=== PATIENT | female | born 1995 | race Caucasian/White ===

== ENCOUNTER 2019-06-28 19:46 | Emergency (ER) | payer BC ==
[~2019-06-28] VITALS: Ht 152.4 cm; Wt 43.5 kg
== END 2019-06-28 23:07 | disposition home or self-care (01) ==
LOC: ER 19:46
DX: S00.33XA Contusion of nose, initial encounter (principal); W54.1XXA Struck by dog, initial encounter; Y93.89 Activity, other specified; Y92.89 Other specified places as the place of occurrence of the external cause; Y99.8 Other external cause status

== ENCOUNTER 2023-05-03 14:43 | Outpatient (CLI) | payer OTHER | END 2023-05-03 17:06 | disposition home or self-care (01) | LOC: PRENATAL 14:43 | PROVIDERS: ATTEND Obstetrics & Gynecology Maternal & Fetal Medicine | DX: O36.80X0 Pregnancy with inconclusive fetal viability, not applicable or unspecified (principal); Z36.9 Encounter for antenatal screening, unspecified; Z36.82 Encounter for antenatal screening for nuchal translucency; Z3A.12 12 weeks gestation of pregnancy ==

== ENCOUNTER 2023-06-30 08:16 | Outpatient (CLI) | payer OTHER | END 2023-06-30 08:18 | disposition home or self-care (01) | LOC: PRENATAL 08:16 | PROVIDERS: ATTEND Obstetrics & Gynecology Maternal & Fetal Medicine | DX: O35.3XX0 Maternal care for (suspected) damage to fetus from viral disease in mother, not applicable or unspecified (principal); O44.00 Complete placenta previa NOS or without hemorrhage, unspecified trimester; Z3A.20 20 weeks gestation of pregnancy ==

== ENCOUNTER 2023-09-22 09:10 | Outpatient (CLI) | payer OTHER | END 2023-09-22 09:11 | disposition home or self-care (01) | LOC: PRENATAL 09:10 | PROVIDERS: ATTEND Obstetrics & Gynecology Maternal & Fetal Medicine | DX: O26.849 Uterine size-date discrepancy, unspecified trimester (principal); O36.8199 Decreased fetal movements, unspecified trimester, other fetus; Z3A.32 32 weeks gestation of pregnancy ==

== ENCOUNTER 2023-10-26 09:38 | Outpatient (CLI) | payer OTHER | END 2023-10-26 09:43 | disposition home or self-care (01) | LOC: PRENATAL 09:38 | PROVIDERS: ATTEND Obstetrics & Gynecology Maternal & Fetal Medicine | DX: O26.849 Uterine size-date discrepancy, unspecified trimester (principal); O36.8199 Decreased fetal movements, unspecified trimester, other fetus; Z3A.37 37 weeks gestation of pregnancy ==

== ENCOUNTER 2023-10-29 14:44 | Outpatient (CLI) | payer OTHER ==
[~2023-10-29] VITALS: Ht 154.9 cm; Wt 58.5 kg
[~2023-10-29 14:44] MED LIST: IRON18 MG PO; PRENATAL TABLE1 EAC1 PO
[2023-10-29] MEDS ORDERED: RINGERS SOLUTION,LACTATED 1,000 ML IV SCH (15:00)
[2023-10-29 15:42] LABS: PH,URINE 6.5 (5.0-8.0); URINE APPEARANCE Clear; URINE BILIRRUBIN Negative (NEGATIVE); URINE BLOOD Small; URINE COLOR Yellow; URINE GLUCOSE Negative (NEGATIVE); URINE LEUKOCYTE Trace; URINE NITRATE Negative; URINE PROTEIN Negative (NEGATIVE); URINE UROBILINOGEN 0.2 E.U./dl
[2023-10-29 15:43] LABS: URINE BACTERIA 481.2 uL (0.0-1933); URINE WBC 30.7 uL (0.0-23.2)
[2023-10-29 15:45] LABS: HEMATOCRIT 36.3 % (36.0-45.00); HEMOGLOBIN 12.6 g/dL (12.0-15.00); MEAN CELL VOLUME 89.7 fL (80.00-100.00); MEAN CORPUSCULAR HEMOGLOBIN 31.1 pg (27.00-32.0); MEAN CORPUSCULAR HGB CONC 34.7 g/dl (32.0-36.0); RED BLOOD COUNT 4.04 M/uL (4.00-6.00); RED CELL DISTRIBUTION WIDTH 13.9 % (11.5-14.5)
[2023-10-29 15:46] LABS: URINE RBC 0.7 uL (0.0-20.8)
[2023-10-29 15:53] LABS: PLATELET COUNT 120 K/uL (150-450)
[2023-10-29 16:08] LABS: ALBUMIN 2.7 gm/dL (3.4-5.0); BILIRUBIN TOTAL 0.29 mg/dL (0.3-1.2); CALCIUM 9.2 mg/dL (8.5-10.1); CREATININE SERUM 0.59 mg/dL (0.55-1.02); GFR 120.5; GLOBULINA 3.2 G/DL (2.4-3.5); POTASSIUM 4.2 mEq/L (3.5-5.1); TOTAL PROTEIN 5.9 gm/dL (6.4-8.2)
[2023-10-29] MEDS ORDERED: ONDANSETRON HCL 2 MG/ML VIAL IV ONE (19:15)
[2023-10-29] MEDS ORDERED: hydrOXYzine PAMOATE 50 MG CAPSULE PO PRN (21:30)
== END 2023-10-30 14:01 | disposition home or self-care (01) ==
LOC: OBS/DEL 14:44
PROVIDERS: ATTEND Obstetrics & Gynecology
DX: O63.9 Long labor, unspecified (principal); Z3A.37 37 weeks gestation of pregnancy

== ENCOUNTER 2024-04-13 07:02 | Outpatient (CLI) | payer OTHER | END 2024-04-13 07:16 | disposition home or self-care (01) | LOC: MRI 07:02 | PROVIDERS: ATTEND Obstetrics & Gynecology | DX: R19.00 Intra-abdominal and pelvic swelling, mass and lump, unspecified site (principal); R10.2 Pelvic and perineal pain; R10.9 Unspecified abdominal pain; J22 Unspecified acute lower respiratory infection | CPT/HCPCS: 72197; 74183 ==

== ENCOUNTER 2025-06-01 11:51 | Outpatient (CLI) | payer OTHER | END 2025-06-01 11:58 | disposition home or self-care (01) | LOC: MRI 11:51 | PROVIDERS: ATTEND Obstetrics & Gynecology | DX: E23.6 Other disorders of pituitary gland (principal); E27.9 Disorder of adrenal gland, unspecified | CPT/HCPCS: 70552 ==